=== PATIENT | female | born 1995 | race Caucasian/White ===

== ENCOUNTER 2022-11-16 20:07 | Emergency (ER) | payer SELFPAY ==
[2022-11-16 20:11] VITALS: BP 144/73; PULSE 96; RESP 20; TEMP 36.6; O2SAT 100; BMI 57.4
--- NOTE | 2022-11-16 20:17 | XR_ITS ---
The [address] [address] Patient Name: JASBIR SINCLAIR MRN: [id number] date: 1995 Sex: F Assigned Patient Location: ER Current Patient Location: ED.MAIN Accession/Order Number: [id number] Exam Date: 11/16/2022 20:25 Report Date: 11/16/2022 20:49 At the request of: KEVIN COVARRUBIAS Procedure: XR knee LT 2V EXAM: XR knee LT 2V HISTORY: fall COMPARISON: None. FINDINGS: 2 radiographs of the left knee were obtained. No fracture or dislocation. Joint spaces are well-maintained. No joint effusion. IMPRESSION: No fracture or dislocation. Electronically authenticated by: JAY DONNELLY Date: 11/16/2022 20:49
--- NOTE | 2022-11-16 20:34 | ED_ITS ---
Documented by User: Rhianna Korey 11/16/22 20:42 HPI - Extremity Injury (Lower) General Chief Complaint: Extremity Injury, Lower Stated Complaint: LEFT KNEE PAIN Time Seen by Provider: 11/16/22 20:17 Source: patient Mode of arrival: walk-in Limitations: no limitations History of Present Illness HPI Narrative: 27-year-old female presents here chief complaint of left knee pain. [place] was [place] standing at the bottom of a slide when someone accidentally bumped into her leg. States caused her to fall backwards. She did not fall to the ground. States since that point time she's had increased pain. Patient is obese. There is no obvious swelling or deformity. She is able to flex and extend. Related Data Allergies Allergy/AdvReac Type Severity Reaction Status Date / Time amphetamine [From Adderall] Allergy Intermediate Verified 11/16/22 20:15 dextroamphetamine Allergy Intermediate Verified 11/16/22 20:15 [From Adderall] Review of Systems ROS Narrative All Systems are negative except as noted/marked.All systems reviewed and otherwise negative Exam Narrative Exam Narrative: General: The patient appears well and in no apparent distress. Patient is resting comfortably on cart. Skin: Warm, dry, no pallor noted. There is no rash noted. Head: Normocephalic, atraumatic Eye: Normal conjunctiva, no drainage, EOMI. PERRL Ears, Nose, Mouth, and Throat: oral mucosa is moist. Nares patent. Mouth without vesicles. Ear canals patent. Tm's without Erythema Back: non-tender, no CVA tenderness bilaterally to percussion. GI: Normal bowel sounds, no tenderness to palpation, no masses appreciated. No rebound, guarding, or rigidity noted. Musculoskeletal: Left knee tenderness full range of motion no obvious deformity or dislocation. flexion an extension of left knee. The patient has no evidence of calf tenderness, no pitting edema, symmetrical pulses noted bilaterally Neurological: A&O x4, normal speech Psychiatric: Cooperative Constitutional Vital Signs - 24 hr 11/16/22 20:11 Temperature 97.8 F Pulse Rate [Monitor] 96 H Respiratory Rate 20 Blood Pressure [Left Arm] 144/73 H Pulse Oximetry 100 Oxygen Delivery Method Room Air Extremity Common normals: normal to inspection and full ROM Course Vital Signs Vital signs: Vital Signs Temperature 97.8 F 11/16/22 20:11 Pulse Rate 96 H 11/16/22 20:11 Respiratory Rate 20 11/16/22 20:11 Blood Pressure 144/73 H 11/16/22 20:11 Pulse Oximetry 100 11/16/22 20:11 Oxygen Delivery Method Room Air 11/16/22 20:11 Temperature 97.8 F 11/16/22 20:11 Pulse Rate 96 H 11/16/22 20:11 Respiratory Rate 20 11/16/22 20:11 Blood Pressure 144/73 H 11/16/22 20:11 Pulse Oximetry 100 11/16/22 20:11 Oxygen Delivery Method Room Air 11/16/22 20:11 MDM - Extremity Injury (Lower) MDM Narrative Medical decision making narrative: Patient presented here chief complaint of left knee pain. X-ray shows no acute d eformity or dislocation. Patient's told to rest ice elevate. Diagnosis of a right knee sprain. Patient will follow-up with orthopedics and primary care physician as necessary. Medical Records Medical records narrative: Knee sprain, strain, fracture, dislocation Discharge Plan Discharge Chief Complaint: Extremity Injury, Lower Clinical Impression: Knee sprain Patient Disposition: Home, Self-Care Time of Disposition Decision: 20:39 Condition: Good Instructions: Knee Sprain (ED), P.R.I.C.E. Treatment (ED) Stand Alone Forms: Portal Instructions Referrals: TRINA AWAD [Physician] - 1 week Physician,Non-Staff, [Primary Care Provider] - 1 week Discharge Date/Time: 11/16/22 21:00 Documented by User: [email or web address] Corea MD 11/16/22 21:39 HPI - Extremity Injury (Lower) General Chief Complaint: Extremity Injury, Lower Stated Complaint: LEFT KNEE PAIN Time Seen by Provider: 11/16/22 20:17 Related Data Allergies Allergy/AdvReac Type Severity Reaction Status Date / Time amphetamine [From Adderall] Allergy Intermediate Verified 11/16/22 20:15 dextroamphetamine Allergy Intermediate Verified 11/16/22 20:15 [From Adderall] Exam Constitutional Vital Signs - 24 hr 11/16/22 20:11 Temperature 97.8 F Pulse Rate [Monitor] 96 H Respiratory Rate 20 Blood Pressure [Left Arm] 144/73 H Pulse Oximetry 100 Oxygen Delivery Method Room Air Course Vital Signs Vital signs: Vital Signs Temperature 97.8 F 11/16/22 20:11 Pulse Rate 96 H 11/16/22 20:11 Respiratory Rate 20 11/16/22 20:11 Blood Pressure 144/73 H 11/16/22 20:11 Pulse Oximetry 100 11/16/22 20:11 Oxygen Delivery Method Room Air 11/16/22 20:11 Temperature 97.8 F 11/16/22 20:11 Pulse Rate 96 H 11/16/22 20:11 Respiratory Rate 20 11/16/22 20:11 Blood Pressure 144/73 H 11/16/22 20:11 Pulse Oximetry 100 11/16/22 20:11 Oxygen Delivery Method Room Air 11/16/22 20:11 Critical Care Time Critical Care Time Attestation: I, Dr Corea, have reviewed the above progress note and course of action in the ER; agree with the above. I have personally seen and evaluated this patient, gone over history and physical, and discussed disposition and treatment plan with the patient. Discharge Plan Discharge Chief Complaint: Extremity Injury, Lower Clinical Impression: Knee sprain Patient Disposition: Home, Self-Care Time of Disposition Decision: 20:39 Condition: Good Instructions: Knee Sprain (ED), P.R.I.C.E. Treatment (ED) Stand Alone Forms: Portal Instructions Referrals: TRINA AWAD [Physician] - 1 week Physician,Non-Staff, [Primary Care Provider] - 1 week Discharge Date/Time: 11/16/22 21:00
== END 2022-11-16 21:00 | disposition home or self-care (01) ==
PROVIDERS: Emergency Provider Emergency Medicine
DX: S83.92XA Sprain of unspecified site of left knee, initial encounter (principal); W03.XXXA Other fall on same level due to collision with another person, initial encounter
CPT/HCPCS: 73560; 99283